=== PATIENT | male | born 1995 | race Caucasian/White ===

== ENCOUNTER 2017-04-24 10:20 | Emergency (ER) | payer MEDICAID, OTHER ==
[~2017-04-24] VITALS: Ht 154.9 cm; Wt 59.0 kg
[2017-04-24] MEDS ORDERED: IBUPROFEN 800MG TABLET PO ONE (11:15)
[2017-04-24 11:18] VITALS: BP 124/70
== END 2017-04-24 12:13 | disposition home or self-care (01) ==
LOC: ER 11:18
DX: S83.92XA Sprain of unspecified site of left knee, initial encounter (principal); W18.30XA Fall on same level, unspecified, initial encounter; Y93.89 Activity, other specified; Y92.89 Other specified places as the place of occurrence of the external cause; Y99.0 Civilian activity done for income or pay
CPT/HCPCS: 73562; 99284